=== PATIENT | male | born 1975 | race Two or more races ===

== ENCOUNTER 2022-06-18 11:56 | Emergency (ER) | payer SELFPAY ==
[~2022-06-18] VITALS: Ht 170.2 cm; Wt 89.4 kg
--- NOTE | 2022-06-18 14:15 | NUR ---
DR. BUENO EXAMINED PATIENT. DENIES ANY SHORTNESS OF BREATH OR CHEST PAIN. SINUS BRADYCARDIA. PATIENT STATES HE IS ATHLETIC, AND PULSES RUN SLOW.
[2022-06-18 14:33] LABS: HEMATOCRIT 47.7 % (36.7-47.1); MEAN CORPUSCULAR HEMOGLOBIN 29.1 uug (23.8-33.4); MEAN CORPUSCULAR VOLUME 84.3 fL (73.0-96.2); PLATELET COUNT (AUTO) 248 K/uL (152-348)
[2022-06-18 14:38] LABS: POTASSIUM 4.1 mmol/L (3.5-5.1)
[2022-06-18 19:55] VITALS: BP 110/67
== END 2022-06-18 19:55 | disposition home or self-care (01) ==
LOC: ER 12:02
DX: R09.89 Other specified symptoms and signs involving the circulatory and respiratory systems (principal); R94.31 Abnormal electrocardiogram [ECG] [EKG]
CPT/HCPCS: 36415; 70450; 85025; 85651; 93005; A4663